=== PATIENT | male | born 1970 | race Caucasian/White ===

== ENCOUNTER → 2024-01-01 06:25 | Day surgery (SDC) | payer BC, SELFPAY ==
[2024-01-01 07:13] LABS: Glucose - Point of Care 144 mg/dl (70-99)
== END ==
LOC: GI 06:25
PROVIDERS: ATTENDING PHYSICIAN Internal Medicine
DX: Z12.11 Encounter for screening for malignant neoplasm of colon (principal); K64.8 Other hemorrhoids; Z80.0 Family history of malignant neoplasm of digestive organs
CPT/HCPCS: G0105; 82962

== ENCOUNTER → 2024-10-09 11:15 | Outpatient (REF) | payer BC, SELFPAY | LOC: HWRAD 11:15 | PROVIDERS: ATTENDING PHYSICIAN Family Medicine | DX: M54.16 Radiculopathy, lumbar region (principal); M62.830 Muscle spasm of back | CPT/HCPCS: 72110 ==

== ENCOUNTER → 2024-11-04 06:35 | Outpatient (REF) | payer BC, SELFPAY | LOC: MRI 3T 06:35 | PROVIDERS: ATTENDING PHYSICIAN Family Medicine | DX: M54.16 Radiculopathy, lumbar region (principal); M62.830 Muscle spasm of back | CPT/HCPCS: 72148 ==

== ENCOUNTER → 2025-07-01 | Outpatient (REF) | payer BC, SELFPAY | LOC: DHSLP | PROVIDERS: ATTENDING PHYSICIAN Internal Medicine; FAMILY PHYSICIAN Family Medicine | DX: G47.33 Obstructive sleep apnea (adult) (pediatric) (principal) | CPT/HCPCS: 95800 ==